=== PATIENT | female | born 1995 | race Caucasian/White ===

== ENCOUNTER 2021-10-09 19:37 | Emergency (ER) | payer OTHER ==
[2021-10-09] MEDS ORDERED: Zofran 4 MG/2 ML VIAL IV ONE (20:03)
[2021-10-09] MEDS ORDERED: Sodium Chloride 0.9% 1000 ML 1,000 ML IV STA (20:03)
[2021-10-09] MEDS ORDERED: Sodium Chloride 0.9% 1000 ML 1,000 ML ONE (20:12)
[2021-10-09] MEDS ORDERED: Zofran 4 MG/2 ML VIAL ONE (20:12)
--- NOTE | 2021-10-09 20:12 | ERPHSYRPT ---
- History of Present Illness Time Seen by Provider: 10/09/21 19:45 Source: patient Exam Limitations: no limitations Patient Subjective Stated Complaint: Patient states " I have been throwing up non-stop for last 2 days and cannot keep anything down including water." Triage Nursing Assessment: Patient arrived to ED and ambulated back to room without difficulty. Patient A/O times 4. Patient able to follow instructions without difficulty. Upon triage patient noted to be having dry heeves. Patient states she cannot even drink water without throwing it up. Patient is 13 weeks with 2 child and has had 1 misscarriage along with a D&C in 2017. Patient denies any pain or buring up[on urination. Patient denies any flank pain. Patient denies throwing up any bright red blood or dark emesis. Patient states its yellow bile. + BS times 4 quads. ABD round and non-tender. No dependent edema noted. Physician History: 26 years old 7 para 1 at 13 weeks gestation presented in the ER with chief complaint of nausea vomiting for the last 2 days with inability to hold anything down. Patient reports worsening of nausea vomiting with oral intake. She has not tried any antiemetics at home. Denies any vaginal b leeding/discharge or any pelvic cramping. Denies any fever or chills. Feeling weak fatigued and tired. Timing/Duration: day(s) (2) Activites at Onset: none Pain Radiation: none Severity of Pain-Max: none Severity of Pain-Current: none Prior abdominal problems: none Sexual intercourse history: non-contributory Modifying Factors: Worsens With: eating, vomiting Associated Symptoms: nausea, vomiting Allergies/Adverse Reactions: No Known Drug Allergies Allergy (Unverified 10/09/21 19:47) Home Medications: Vits W-Ca,Fe,FA(<1Mg) [] 1 tab PO DAILY 10/09/21 [History] Hx Tetanus, Diphtheria Vaccination/Date Given: Yes Hx Influenza Vaccination/Date Given: No Hx Pneumococcal Vaccination/Date Given: No Travel Risk - International Travel Have you traveled outside of the country in past 3 weeks: No - Coronavirus Screening Are you exhibiting any of the following symptoms?: No Close contact with a COVID-19 positive Pt in past 14-21 Days: No - Vaccine Status Have you recieved a Covid-19 vaccination: No - Review of Systems Constitutional: Fatigue, Weakness Eyes: No Symptoms Ears, Nose, & Throat: No Symptoms Respiratory: No Symptoms Cardiac: No Symptoms Abdominal/Gastrointestinal: Nausea, Vomiting Genitourinary Symptoms: No Symptoms Musculoskeletal: No Symptoms Skin: No Symptoms Neurological: No Symptoms Psychological: No Symptoms Hematologic/Lymphatic: No Symptoms Immunological/Allergic: No Symptoms - Past Medical History Pertinent Past Medical History: Yes Neurological History: No Pertinent History ENT History: No Pertinent History Cardiac History: No Pertinent History Respiratory History: Asthma Endocrine Medical History: No Pertinent History Musculoskeletal History: No Pertinent History GI Medical History: No Pertinent History History: No Pertinent History Psycho-Social History: Anxiety, Depression Female Reproductive Disorders: No Pertinent History - Past Surgical History Past Surgical History: Yes Neuro Surgical History: No Pertinent History Cardiac: No Pertinent History Respiratory: No Pertinent History Gastrointestinal: No Pertinent History Genitourinary: No Pertinent History Musculoskeletal: No Pertinent History Female Surgical History: Other Other Surgical History: D&C 2017 - Social History Smoking Status: Current every day smoker Exposure to second hand smoke: Yes Drug Use: marijuana Patient Lives Alone: Yes - Female History Hx Now: Yes Gestational Age: 13 weeks - Nursing Vital Signs Nursing Vital Signs: Initial Vital Signs Temperature 98.8 F 10/09/21 19:38 Pulse Rate 89 10/09/21 19:38 Respiratory Rate 18 10/09/21 19:38 Blood Pressure 93/68 10/09/21 19:38 O2 Sat by Pulse Oximetry 100 10/09/21 19:38 Pain Scale Pain Intensity 0 - Physical Exam General Appearance: no apparent distress, alert Eye Exam: PERRL/EOMI, eyes nml inspection Ears, Nose, Throat Exam: normal ENT inspection, TMs normal, pharynx normal Neck Exam: normal inspection, supple, full range of motion Respiratory Exam: normal breath sounds, lungs clear Cardiovascular Exam: regular rate/rhythm, normal heart sounds Gastrointestinal/Abdomen Exam: soft, normal bowel sounds, No tenderness Back Exam: normal inspection, normal range of motion Extremity Exam: normal inspection, normal range of motion, pelvis stable Neurologic Exam: alert, oriented x 3, cooperative Skin Exam: normal color SpO2 Interpretation: normal SpO2: 100 O2 Delivery: Room Air Ordered Tests: Active Orders 24 hr Category Date Time Status Heart Tones ONCE Care 10/09/21 20:04 Active IV Insertion STAT Care 10/09/21 20:03 Active AMYLASE Stat Lab 10/09/21 20:00 Completed CBC W DIFF Stat Lab 10/09/21 20:03 Completed CMP Stat Lab 10/09/21 20:00 Completed CULTURE,URINE Stat Lab 10/09/21 20:08 Received LIPASE Stat Lab 10/09/21 20:00 Completed UA W/RFX UR CULTURE Stat Lab 10/09/21 20:08 Completed Medication Summary Discontinued Medications Generic Name Dose Route Start Last Admin Trade Name Meir PRN Reason Stop Dose Admin Sodium Chloride 1,000 mls @ 999 mls/hr 10/09/21 20:03 10/09/21 21:15 Sodium Chloride 0.9% 1000 Ml IV 10/09/21 21:03 Infused .Q1H1M STA Infusion Sodium Chloride Confirm 10/09/21 20:12 Sodium Chloride 0.9% 1000 Ml Administered 10/09/21 20:13 Dose 1,000 mls @ ud .ROUTE .STK-MED ONE Ceftriaxone Sodium/Dextrose 2 g in 50 mls @ 100 mls/hr 10/09/21 21:11 10/09/21 21:16 Rocephin 2 Gm-D5w 50ml Bag IV 10/09/21 21:40 100 ml/hr STAT STA 100 mls/hr Administration Ceftriaxone Sodium/Dextrose Confirm 10/09/21 21:14 Rocephin 2 Gm-D5w 50ml Bag Administered 10/09/21 21:15 Dose 2 g in 50 mls @ ud IV .STK-MED ONE Ondansetron HCl 4 mg 10/09/21 20:03 10/09/21 20:15 Ondansetron Hcl 4 Mg/2 Ml Vial IV 10/09/21 20:04 4 mg STAT ONE Administration Ondansetron HCl Confirm 10/09/21 20:12 Ondansetron Hcl 4 Mg/2 Ml Vial Administered 10/09/21 20:13 Dose 4 mg .ROUTE .STK-MED ONE Lab/Rad Data: Laboratory Result Diagrams 10/09/21 20:03 10/09/21 20:00 Laboratory Results 10/09/21 10/09/21 10/09/21 Range/Units 20:08 20:03 20:00 WBC 18.5 H (4.0-10.5) K/mm3 RBC 5.03 (4.1-5.4) M/mm3 Hgb 14.3 (12.0-16.0) gm/dl Hct 42.6 (35-47) % MCV 84.7 (78-100) fl MCH 28.4 (26-32) pg MCHC 33.6 (32-36) g/dl RDW 14.3 H (11.5-14.0) % Plt Count 315 (150-450) K/mm3 MPV 11.4 H (7.5-11.0) fl Gran % 75.4 H (36.0-66.0) % Eos # (Auto) 0.01 (0-0.5) Absolute Lymphs (auto) 2.95 (1.0-4.6) Absolute Monos (auto) 1.58 H (0.0-1.3) Lymphocytes % 15.9 L (24.0-44.0) % Monocytes % 8.5 (0.0-12.0) % Eosinophils % 0.1 (0.00-5.0) % Basophils % 0.1 (0.0-0.4) % Absolute Granulocytes 13.98 H (1.4-6.9) Basophils # 0.02 (0-0.4) Sodium 136 L (137-145) mmol/L Potassium 3.3 L (3.5-5.1) mmol/L Chloride 96 L (98-107) mmol/L Carbon Dioxide 27 (22-30) mmol/L Anion Gap 16.7 H (5-15) MEQ/L BUN 11 (7-17) mg/dL Creatinine 0.57 (0.52-1.04) mg/dL Estimated GFR > 60.0 ML/MIN Glucose 109 H (74-106) mg/dL Calcium 9.5 (8.4-10.2) mg/dL Total Bilirubin 1.30 (0.2-1.3) mg/dL AST 42 H (14-36) U/L ALT 28 (0-35) U/L Alkaline Phosphatase 67 (38-126) U/L Serum Total Protein 7.8 (6.3-8.2) g/dL Albumin 4.5 (3.5-5.0) g/dL Amylase 52 (30-110) U/L Lipase 54 (23-300) U/L Urine Color JUSTIN (YELLOW) Urine Appearance SLIGHTLY CLOUDY (CLEAR) Urine pH 6.0 (5-6) Ur Specific [place] 1.020 (1.005-1.025) Urine Protein 100 (Negative) Urine Ketones SMALL (NEGATIVE) Urine Blood SMALL (0-5) Abhi/ul Urine Nitrite NEGATIVE (NEGATIVE) Urine Bilirubin NEGATIVE (NEGATIVE) Urine Urobilinogen 2 (0-1) mg/dL Ur Leukocyte Esterase SMALL (NEGATIVE) Urine WBC (Auto) 16-25 (0-5) /HPF Urine RBC (Auto) 11-15 (0-2) /HPF U Hyaline Cast (Auto) 0-2 (0-2) /LPF U Epithel Cells (Auto) RARE (FEW) /HPF Urine Bacteria (Auto) FEW (NEGATIVE) /HPF Urine Mucus (Auto) SLIGHT (NEGATIVE) /HPF Urine Culture Reflexed YES (NO) Urine Glucose NEGATIVE (NEGATIVE) mg/dL - Progress Progress: improved Air Movement: good Progress Note: 10/09/21 26 years old is evaluated for nausea/vomiting. She has a heart tone of 170. She is given fluid bolus along with Zofran/Reglan, on reevaluation feeling much better. Work-up showed white count of 18.5 and chemistries mild hypokalemia and mildly elevated gap. Urinalysis consistent with UTI. Given a dose of Faisal ephin in here. Patient is feeling much better. No abdominal tenderness at all. Denies any vaginal bleeding discharge or pelvic cramping. Discussed with primary OB Dr. Pérez, reviewed history work-up, recommended starting on Macrobid and outpatient follow-up. Discussed signs symptoms of worsening needing return to ER which patient seems understanding. Stable for discharge. Blood Culture(s) Obtained: No Antibiotics given: Yes, No Discussed with DrJuany: Lina Counseled pt/family regarding: lab results, diagnosis, need for follow-up - Departure Departure Disposition: Home Clinical Impression: Nausea/vomiting in Condition: Stable Critical Care Time: No Referrals: IONA PÉREZ DO [ACTIVE STAFF] - Follow up/PCP as directed (Call in 3 days for reevaluation) Instructions: Nausea and Vomiting of (DC) Additional Instructions: Drink plenty of fluids. Take Tylenol as needed. Continue with antibiotics. Follow-up with your primary OB for reevaluation early next week. Return to ER for worsening vomiting or if develop abdominal/pelvic cramping/vaginal bleeding/discharge etc. Prescriptions: Nitrofurantoin Macro 100 mg [Macrobid 100MG Capsule] 100 mg PO BID #14 cap Ondansetron HCl [Zofran] 4 mg PO TID PRN #14 tablet PRN Reason: Nausea/Vomiting
[2021-10-09 20:15] LABS: Absolute Neutrophil Ct (ANC) 13.98 (1.4-6.9); BASOPHIL % 0.1 % (0.0-0.4); Basophil (Absolute #) 0.02 (0-0.4); Eosinophil % 0.1 % (0.00-5.0); Eosinophil (Absolute #) 0.01 (0-0.5); Hematocrit 42.6 % (35-47); Hemoglobin 14.3 gm/dl (12.0-16.0); Lymphocyte (Absolute #) 2.95 (1.0-4.6); Lymphocytes % 15.9 % (24.0-44.0); Mean Cell Volume 84.7 fl (78-100); Mean Corpuscular Hemoglobin 28.4 pg (26-32); Mean Corpuscular Hgb Concent. 33.6 g/dl (32-36); Mean Platelet Volume 11.4 fl (7.5-11.0); Monocyte (Absolute #) 1.58 (0.0-1.3); Monocytes % 8.5 % (0.0-12.0); Neutrophil % 75.4 % (36.0-66.0); Platelet Count 315 K/mm3 (150-450); Red Blood Count 5.03 M/mm3 (4.1-5.4); Red Cell Distribution Width 14.3 % (11.5-14.0); White Blood Count 18.5 K/mm3 (4.0-10.5)
[2021-10-09 20:20] LABS: Appearance SLIGHTLY CLOUDY (CLEAR); Bacteria FEW /HPF (NEGATIVE); Bilirubin NEGATIVE (NEGATIVE); Blood SMALL Ery/ul (0-5); Epithelial Cells RARE /HPF (FEW); Glucose NEGATIVE (NEGATIVE); Hyaline Casts 0-2 /LPF (0-2); Ketones SMALL (NEGATIVE); Leukocyte Esterase SMALL (NEGATIVE); Mucus SLIGHT /HPF (NEGATIVE); Nitrite NEGATIVE (NEGATIVE); Protein,Urine Dip 100 (Negative); Urobilinogen 2 mg/dL (0-1)
[2021-10-09 20:29] LABS: ALBUMIN 4.5 g/dL (3.5-5.0); ALKALINE PHOSPHATASE 67 U/L (38-126); AMYLASE 52 U/L (30-110); ANION GAP 16.7 MEQ/L (5-15); BLOOD UREA NITROGEN 11 mg/dL (7-17); CHLORIDE 96 mmol/L (98-107); Calcium 9.5 mg/dL (8.4-10.2); Carbon Dioxide 27 mmol/L (22-30); Creatinine 1 0.57 mg/dL (0.52-1.04); EST GLOMERULAR FILTRATION RATE > 60.0 ML/MIN; Glucose 109 mg/dL (74-106); LIPASE 54 U/L (23-300); Potassium 3.3 mmol/L (3.5-5.1); SGOT/AST 42 U/L (14-36); SODIUM 136 mmol/L (137-145); Total Protein 7.8 g/dL (6.3-8.2)
[2021-10-09 20:37] LABS: SGPT/ALT 28 U/L (0-35)
[2021-10-09] MEDS ORDERED: ROCEPHIN 2 Gm-D5w 50ML BAG** 2 G/50 ML IVPB IV STA (21:11)
[2021-10-09] MEDS ORDERED: ROCEPHIN 2 Gm-D5w 50ML BAG** 2 G/50 ML IVPB IV ONE (21:14)
[2021-10-09] MEDS ORDERED: Reglan 10 MG/2 ML IV ONE (21:46)
[2021-10-09] MEDS ORDERED: Reglan 10 MG/2 ML ONE (21:47)
== END 2021-10-09 22:35 | disposition home or self-care (01) ==
LOC: ED 19:37
DX: O21.9 Vomiting of pregnancy, unspecified (principal); Z3A.13 13 weeks gestation of pregnancy; Z72.0 Tobacco use
CPT/HCPCS: 36000; 36415; 80053; 81001; 82150; 83690; 85025; 87086; 96374; 96375; 99284; J0696; J2405

== ENCOUNTER 2021-10-21 02:38 | Emergency (ER) | payer OTHER ==
--- NOTE | 2021-10-21 03:00 | ERPHSYRPT ---
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 At approximately 11 PM last night she began having some significant pelvic cramping followed by bleeding. Upon arrival to the emergency department she had passed the fetus and placenta with clots. Patient has a history of spontaneous miscarriages. Timing/Duration: today Activites at Onset: none Quality: cramping Onset Location: suprapubic, pelvic pain Severity of Pain-Max: moderate Severity of Pain-Current: moderate Sexual intercourse history: non-contributory Modifying Factors: Improves With: nothing Associated Symptoms: vaginal discharge (Blood and clots) Allergies/Adverse Reactions: No Known Drug Allergies Allergy (Unverified 10/21/21 02:54) Home Medications: Vits W-Ca,Fe,FA(<1Mg) [] 1 tab PO DAILY 10/09/21 [History] Hx Tetanus, Diphtheria Vaccination/Date Given: Yes Hx Influenza Vaccination/Date Given: No Hx Pneumococcal Vaccination/Date Given: No Travel Risk - International Travel Have you traveled outside of the country in past 3 weeks: No - Coronavirus Screening Are you exhibiting any of the following symptoms?: No Close contact with a COVID-19 positive Pt in past 14-21 Days: No - Vaccine Status Have you recieved a Covid-19 vaccination: No - Review of Systems Constitutional: No Symptoms Eyes: No Symptoms Ears, Nose, & Throat: No Symptoms Respiratory: No Symptoms Cardiac: No Symptoms Abdominal/Gastrointestinal: Abdominal Pain (Pubic and pelvic) Genitourinary Symptoms: Vaginal Bleeding Skin: No Symptoms Neurological: No Symptoms Psychological: No Symptoms Endocrine: No Symptoms Hematologic/Lymphatic: No Symptoms Immunological/Allergic: No Symptoms All Other Systems: Reviewed and Negative - Past Medical History Pertinent Past Medical History: Yes Neurological History: No Pertinent History ENT History: No Pertinent History Cardiac History: No Pertinent History Respiratory History: Asthma Endocrine Medical History: No Pertinent History Musculoskeletal History: No Pertinent History GI Medical History: No Pertinent History History: No Pertinent History Psycho-Social History: Anxiety, Depression Female Reproductive Disorders: No Pertinent History - Past Surgical History Past Surgical History: Yes Neuro Surgical History: No Pertinent History Cardiac: No Pertinent History Respiratory: No Pertinent History Gastrointestinal: No Pertinent History Genitourinary: No Pertinent History Musculoskeletal: No Pertinent History Female Surgical History: Other Other Surgical History: D&C 2017 - Social History Smoking Status: Current every day smoker Exposure to second hand smoke: Yes Drug Use: marijuana Patient Lives Alone: Yes - Nursing Vital Signs Nursing Vital Signs: Initial Vital Signs Temperature 98.8 F 10/21/21 03:00 Pulse Rate 71 10/21/21 03:00 Respiratory Rate 18 10/21/21 03:00 Blood Pressure 112/73 10/21/21 03:00 O2 Sat by Pulse Oximetry 98 10/21/21 03:00 Pain Scale Pain Intensity 10 - Physical Exam General Appearance: mild distress, alert, anxiety Eye Exam: PERRL/EOMI, eyes nml inspection Ears, Nose, Throat Exam: normal ENT inspection, moist mucous membranes Neck Exam: normal inspection, non-tender, supple, full range of motion Respiratory Exam: normal breath sounds, lungs clear, No chest tenderness, No respiratory distress Cardiovascular Exam: regular rate/rhythm, normal heart sounds, normal peripheral pulses Gastrointestinal/Abdomen Exam: soft, normal bowel sounds, tenderness (Prepubic) Pelvic Exam: not done Rectal Exam: not done Back Exam: normal inspection, normal range of motion, No CVA tenderness, No vertebral tenderness Extremity Exam: normal inspection, normal range of motion, pelvis stable Neurologic Exam: alert, oriented x 3, cooperative, preventive medicine officer II-XII nml as tested, normal mood/affect, nml cerebellar function, nml station & gait, sensation nml Skin Exam: normal color, warm, dry Lymphatic Exam: adenopathy SpO2 Interpretation: normal O2 Delivery: Room Air - Course Nursing assessment & vital signs reviewed: Yes Ordered Tests: Active Orders 24 hr Category Date Time Status IV Insertion STAT Care 10/21/21 03:00 Active CBC W DIFF Stat Lab 10/21/21 03:15 Completed CMP Stat Lab 10/21/21 03:15 Completed HCG, Quantitative (Inhouse) Stat Lab 10/21/21 03:15 Completed UA W/RFX UR CULTURE Stat Lab 10/21/21 03:00 Ordered Medication Summary Discontinued Medications Generic Name Dose Route Start Last Admin Trade Name Freq PRN Reason Stop Dose Admin Hydrocodone Bitart/Acetaminophen 2 tab 10/21/21 03:46 Hydrocodone/Apap 5/325 Mg Tablet PO 10/21/21 03:47 SENT HOME W/ PATIENT ONE Sodium Chloride 1,000 mls @ 999 mls/hr 10/21/21 03:00 10/21/21 03:14 Sodium Chloride 0.9% 1000 Ml IV 10/21/21 04:00 999 mls/hr .Q1H1M STA Administration Sodium Chloride Confirm 10/21/21 03:10 Sodium Chloride 0.9% 1000 Ml Administered 10/21/21 03:11 Dose 1,000 mls @ ud .ROUTE .STK-MED ONE Morphine Sulfate 4 mg 10/21/21 03:00 10/21/21 03:15 Morphine Sulfate 4 Mg/Ml Injection IV 10/21/21 03:01 4 mg STAT ONE Administration Morphine Sulfate Confirm 10/21/21 03:10 Morphine Sulfate 4 Mg/Ml Injection Administered 10/21/21 03:11 Dose 4 mg .ROUTE .STK-MED ONE Ondansetron HCl 4 mg 10/21/21 03:00 10/21/21 03:15 Ondansetron Hcl 4 Mg/2 Ml Vial IV 10/21/21 03:01 4 mg STAT ONE Administration Ondansetron HCl Confirm 10/21/21 03:10 Ondansetron Hcl 4 Mg/2 Ml Vial Administered 10/21/21 03:11 Dose 4 mg .ROUTE .STK-MED ONE Rho Immune Globulin 300 mcg 10/21/21 04:55 Rho(D) Immune Globulin 300 Mcg/Syr Ml IM 10/21/21 04:56 .ONCE ONE Lab/Rad Data: Laboratory Result Diagrams 10/21/21 03:15 10/21/21 03:15 Laboratory Results 10/21/21 10/21/21 10/21/21 Range/Units 03:15 03:15 03:15 WBC 24.1 H (4.0-10.5) K/mm3 RBC 4.51 (4.1-5.4) M/mm3 Hgb 12.9 (12.0-16.0) gm/dl Hct 38.7 (35-47) % MCV 85.8 (78-100) fl MCH 28.6 (26-32) pg MCHC 33.3 (32-36) g/dl RDW 14.3 H (11.5-14.0) % Plt Count 270 (150-450) K/mm3 MPV 11.3 H (7.5-11.0) fl Gran % 84.9 H (36.0-66.0) % Eos # (Auto) 0.06 (0-0.5) Absolute Lymphs (auto) 2.17 (1.0-4.6) Absolute Monos (auto) 1.42 H (0.0-1.3) Lymphocytes % 9.0 L (24.0-44.0) % Monocytes % 5.9 (0.0-12.0) % Eosinophils % 0.2 (0.00-5.0) % Basophils % 0.0 (0.0-0.4) % Absolute Granulocytes 20.48 H (1.4-6.9) Basophils # 0.01 (0-0.4) Sodium 133 L (137-145) mmol/L Potassium 4.2 (3.5-5.1) mmol/L Chloride 103 (98-107) mmol/L Carbon Dioxide 20 L (22-30) mmol/L Anion Gap 14.5 (5-15) MEQ/L BUN 7 (7-17) mg/dL Creatinine 0.40 L (0.52-1.04) mg/dL Estimated GFR > 60.0 ML/MIN Glucose 123 H (74-106) mg/dL Calcium 9.1 (8.4-10.2) mg/dL Total Bilirubin 0.70 (0.2-1.3) mg/dL AST 45 H (14-36) U/L ALT 28 (0-35) U/L Alkaline Phosphatase 78 (38-126) U/L Serum Total Protein 6.9 (6.3-8.2) g/dL Albumin 3.9 (3.5-5.0) g/dL Beta HCG, Quant 66051 mIU/ml Slides for Path Review YES ABO Group B Rh Factor NEGATIVE Antibody Screen NEGATIVE (NEGATIVE) - Progress Progress: improved Air Movement: good Blood Culture(s) Obtained: No Discussed with : Lina (He stated to make sure that if she is Rh- to give her a dose of RhoGam. He then stated she could be discharged to home and follow- up with him in 2 weeks) - Departure Departure Disposition: Home Clinical Impression: Spontaneous miscarriage Condition: Stable Critical Care Time: No Referrals: VANESSA BAINS PA [Primary Care Provider] - Follow up/PCP as directed Additional Instructions: Drink plenty fluids. Take your medication as prescribed. Follow-up with Dr. Pérez in 2 weeks. Return to the emergency department if needed. Prescriptions: Hydrocodone/APAP 5/325 [[place] 5/325 mg] 1 each PO Q8H PRN PRN #6 tablet MDD 3 PRN Reason: Pain
[2021-10-21] MEDS ORDERED: MORPHINE SULFATE 4 MG INJ ONE (03:10)
[2021-10-21] MEDS ORDERED: Sodium Chloride 0.9% 1000 ML 1,000 ML ONE (03:10)
[2021-10-21] MEDS ORDERED: Zofran 4 MG/2 ML VIAL ONE (03:10)
[2021-10-21] MEDS: Sodium Chloride 0.9% 1000 ML 1,000 ML IV STA (03:14)
[2021-10-21] MEDS: MORPHINE SULFATE 4 MG INJ IV ONE (03:15)
[2021-10-21] MEDS: Zofran 4 MG/2 ML VIAL IV ONE (03:15)
[2021-10-21 03:20] VITALS: O2SAT 98
[2021-10-21 03:25] LABS: Absolute Neutrophil Ct (ANC) 20.48 (1.4-6.9); Basophil (Absolute #) 0.01 (0-0.4); Eosinophil % 0.2 % (0.00-5.0); Eosinophil (Absolute #) 0.06 (0-0.5); Hematocrit 38.7 % (35-47); Hemoglobin 12.9 gm/dl (12.0-16.0); Lymphocyte (Absolute #) 2.17 (1.0-4.6); Mean Cell Volume 85.8 fl (78-100); Mean Corpuscular Hemoglobin 28.6 pg (26-32); Mean Corpuscular Hgb Concent. 33.3 g/dl (32-36); Mean Platelet Volume 11.3 fl (7.5-11.0); Monocyte (Absolute #) 1.42 (0.0-1.3); Monocytes % 5.9 % (0.0-12.0); Neutrophil % 84.9 % (36.0-66.0); Platelet Count 270 K/mm3 (150-450); Red Blood Count 4.51 M/mm3 (4.1-5.4); Red Cell Distribution Width 14.3 % (11.5-14.0); White Blood Count 24.1 K/mm3 (4.0-10.5)
[2021-10-21 03:53] LABS: ALBUMIN 3.9 g/dL (3.5-5.0); ALKALINE PHOSPHATASE 78 U/L (38-126); ANION GAP 14.5 MEQ/L (5-15); BLOOD UREA NITROGEN 7 mg/dL (7-17); CHLORIDE 103 mmol/L (98-107); Calcium 9.1 mg/dL (8.4-10.2); Carbon Dioxide 20 mmol/L (22-30); EST GLOMERULAR FILTRATION RATE > 60.0 ML/MIN; Glucose 123 mg/dL (74-106); Potassium 4.2 mmol/L (3.5-5.1); SGOT/AST 45 U/L (14-36); SGPT/ALT 28 U/L (0-35); SODIUM 133 mmol/L (137-145); Total Protein 6.9 g/dL (6.3-8.2)
[2021-10-21 04:18] LABS: HCG, Quantitative (Inhouse) 34375 mIU/ml
[2021-10-21 04:46] LABS: ABO TYPING B
[2021-10-21 04:47] LABS: Antibody Screen NEGATIVE (NEGATIVE); RH TYPING NEGATIVE
[2021-10-21 04:57] LABS: Slide Review 1 YES
[2021-10-21] MEDS ORDERED: NORCO 5/325 MG ONE (06:25)
[2021-10-21] MEDS: NORCO 5/325 MG PO ONE (06:29)
[2021-10-21] MEDS: Rhogam Plus 300 MCG IM ONE (07:18)
[2021-10-21 07:44] VITALS: BP 110/60; PULSE 74
[2021-10-21 08:09] LABS: Appearance SLIGHTLY CLOUDY (CLEAR); Bacteria MODERATE /HPF (NEGATIVE); Bilirubin NEGATIVE (NEGATIVE); Blood LARGE Ery/ul (0-5); Glucose NEGATIVE (NEGATIVE); Ketones NEGATIVE (NEGATIVE); Leukocyte Esterase TRACE (NEGATIVE); Mucus SLIGHT /HPF (NEGATIVE); Nitrite NEGATIVE (NEGATIVE); Protein,Urine Dip 30 (Negative); Specific Gravity 1.011 (1.005-1.025); Urobilinogen NEGATIVE mg/dL (0-1); WBC >100 /HPF (0-5)
[2021-10-21 08:12] LABS: RBC >101 /HPF (0-2)
== END 2021-10-21 07:44 | disposition home or self-care (01) ==
LOC: ED 02:38
DX: O03.9 Complete or unspecified spontaneous abortion without complication (principal); Z72.0 Tobacco use
CPT/HCPCS: 36000; 36415; 80053; 81001; 84702; 85025; 86850; 86900; 86901; 87086; 96360; 96372; 96374; 96375; 99284; J2270; J2405; J2790; A9270-GY